=== PATIENT | male | born 1960 | race Caucasian/White ===

== ENCOUNTER 2017-03-21 21:19 | Inpatient (IN) | payer OTHER ==
[~2017-03-21] VITALS: Ht 172.7 cm; Wt 102.1 kg
--- NOTE | ~2017-03-21 | EKG ---
[address] [address] ELECTROCARDIOGRAM REPORT Name: NATHALIE VYAS Room #: 205-[facility] IN M.R.#: [id number] Admission: 03/21/17 Attend Phys: Champ Evans MD Discharge: 03/22/17 Date of : 60 Report #: [id number] THIS REPORT FOR: //name// [facility] ED Test Date: 2017-03-21 Test Time: 21:24:15 Pat Name: NATAHLIE VYAS Department: Room: [facility] Gender: M Baby Attendant: MZOOK : 1960 Requested By: Ana Rosa Hoffman Order Number: [id number] MD: Maxime Regalado Measurements Intervals [place] Rate: 72 P: GA: QRS: -22 QRSD: 103 T: 13 QT: 407 QTc: 446 Interpretive Statements Sinus rhythm No previous ECG available for comparison Electronically Signed On 03-22-2017 12:46:30 ANNUAL GIVING DIRECTOR by Maxime Regalado [email or web address] <ELECTRONICALLY SIGNED> By: Maxime Regalado MD 03/22/17 1246 [id number] 23 MD ANTHONY Tobias
[2017-03-21 21:22] VITALS: BP 162/95
[2017-03-21 22:14] LABS: BASOPHILS 1.2 % (0.0-2.0); EOSINOPHILS 7.5 % (0.0-3.0); HEMATOCRIT 38.7 % (42.0-52.0); HEMOGLOBIN 12.8 gm/dL (14.0-18.0); LYMPHOCYTES 20.9 % (24.0-44.0); MCV 81.8 fL (80.0-100.0); PLATELET COUNT 433 thou/uL (150-400); POLYS 60.4 % (36.0-66.0); RBC 4.73 mil/uL (4.50-6.00); RDW 14.1 % (10.5-14.5); WBC 8.3 thou/uL (4.0-11.0)
[2017-03-21] MEDS ORDERED: KEPPRA 500 MG500 M1 PO (22:14)
[2017-03-21] MEDS ORDERED: AMLODIPINE BESY10 MG PO (22:14)
[2017-03-21] MEDS ORDERED: CLONIDINE0.1 PO (22:15)
[2017-03-21] MEDS ORDERED: LIPITOR80 MG PO (22:15)
[2017-03-21] MEDS ORDERED: LISINOPRIL20 MG PO (22:15)
[2017-03-21] MEDS ORDERED: RANEXA500 MG PO (22:15)
[2017-03-21] MEDS ORDERED: PROSCAR 5MG TABL5 M1 PO (22:16)
[2017-03-21] MEDS ORDERED: FLOMAX0.4 MG PO (22:16)
[2017-03-21] MEDS ORDERED: EFFIENT10 MG PO (22:16)
[2017-03-21 22:17] LABS: MANUAL DIFF NO
[2017-03-21 22:19] LABS: ANION GAP 8 mmol/L (7-16); BUN 19 mg/dL (7-18); CHLORIDE 110 mmol/L (98-107); CO2 25 mmol/L (21-32); CREATININE 0.9 mg/dL (0.7-1.3); GLUCOSE 107 mg/dL (74-106); POTASSIUM 3.7 mmol/L (3.5-5.1); SODIUM 143 mmol/L (136-145)
[2017-03-21 22:20] VITALS: BP 118/59
[2017-03-21 22:25] LABS: PROTIME 10.5 Seconds (9.3-11.4)
[2017-03-21 22:28] LABS: ALBUMIN 3.5 g/dL (3.4-5.0); ALKALINE PHOSPHATASE 163 U/L (46-116); SGOT 13 U/L (15-37); SGPT 23 U/L (30-65); TOTAL BILIRUBIN 0.4 mg/dL (<0.1-1.0); TOTAL PROTEIN 6.5 g/dL (6.4-8.2); TROPONIN-I < 0.04 ng/mL (<0.06)
[2017-03-21 23:20] VITALS: BP 118/59
== END 2017-03-22 02:55 | disposition left against medical advice (07) | DRG 303 ==
LOC: ER 21:19 → EROBS 22:38 → 2N 23:23
PROVIDERS: Physician Assistant
DX: I25.110 Atherosclerotic heart disease of native coronary artery with unstable angina pectoris (principal); I10 Essential (primary) hypertension; E78.5 Hyperlipidemia, unspecified; Z53.21 Procedure and treatment not carried out due to patient leaving prior to being seen by health care provider; N40.0 Benign prostatic hyperplasia without lower urinary tract symptoms; Z82.49 Family history of ischemic heart disease and other diseases of the circulatory system; Z79.899 Other long term (current) drug therapy; Z95.5 Presence of coronary angioplasty implant and graft
CPT/HCPCS: 10081

== ENCOUNTER 2017-06-20 05:33 | Emergency (ER) | payer OTHER ==
[~2017-06-20] VITALS: Ht 172.7 cm; Wt 102.1 kg
[~2017-06-20 05:33] MED LIST: AMLODIPINE BESY10 MG PO; CLONIDINE0.1 PO; EFFIENT10 MG PO; FLOMAX0.4 MG PO; KEPPRA 500 MG500 M1 PO; LIPITOR80 MG PO; LISINOPRIL20 MG PO; PROSCAR 5MG TABL5 M1 PO; RANEXA500 MG PO
[2017-06-20 06:12] LABS: HEMOGLOBIN 13.1 gm/dL (14.0-18.0); MCH 27.9 pg (26.0-34.0); MCHC 34.5 g/dL (28.0-37.0); MCV 80.9 fL (80.0-100.0); RBC 4.7 mil/uL (4.50-6.00); WBC 8.9 thou/uL (4.0-11.0)
[2017-06-20 06:23] LABS: CALCIUM 8.9 mg/dL (8.5-10.1); CREATININE 1.2 mg/dL (0.7-1.3); POTASSIUM 3.6 mmol/L (3.5-5.1)
[2017-06-20 06:29] LABS: ALBUMIN 3.9 g/dL (3.4-5.0); TOTAL BILIRUBIN 0.4 mg/dL (<0.1-1.0); TOTAL PROTEIN 6.9 g/dL (6.4-8.2)
[2017-06-20 08:22] VITALS: BP 158/87
== END 2017-06-20 08:23 | disposition home or self-care (01) ==
LOC: ER 05:33
PROVIDERS: Emergency Medicine
DX: R56.9 Unspecified convulsions (principal); I10 Essential (primary) hypertension; E78.5 Hyperlipidemia, unspecified; N40.0 Benign prostatic hyperplasia without lower urinary tract symptoms